=== PATIENT | male | born 1970 | race Caucasian/White ===

== ENCOUNTER 2017-08-23 10:07 | Emergency (ER) | payer OTHER ==
[~2017-08-23] VITALS: Ht 172.7 cm; Wt 75.0 kg
[2017-08-23] MEDS ORDERED: AMLO10TA80 PO (10:22)
[2017-08-23] MEDS ORDERED: BUSP5TAB3 PO (10:22)
[2017-08-23] MEDS ORDERED: ATEN50TA PO (10:22)
[2017-08-23] MEDS ORDERED: LISI-652 PO (10:22)
[2017-08-23] MEDS ORDERED: FAMO20TA8 PO (10:22)
[2017-08-23] MEDS ORDERED: IBUPROFEN 800MG TABLET PO ONE (11:00)
[2017-08-23 11:15] VITALS: BP 146/85
== END 2017-08-23 12:31 | disposition home or self-care (01) ==
LOC: ER 11:26
DX: S92.402A Displaced unspecified fracture of left great toe, initial encounter for closed fracture (principal); I10 Essential (primary) hypertension; F17.200 Nicotine dependence, unspecified, uncomplicated; V23.0XXA Motorcycle driver injured in collision with car, pick-up truck or van in nontraffic accident, initial encounter; Y93.89 Activity, other specified; Y92.89 Other specified places as the place of occurrence of the external cause; Y99.8 Other external cause status
CPT/HCPCS: 73660; 99284